=== PATIENT | male | born 1970 | race African-American/Black ===

== ENCOUNTER 2022-08-10 13:52 | Emergency (ER) | payer SELFPAY ==
[2022-08-10 16:27] LABS: HEMOGLOBIN. 14.4 g/dL (14.0-18.0); RED CELL DISTRIBUTION WIDTH 14.8 % (11.6-14.6)
[2022-08-10 16:40] LABS: BASOPHILS % 0.4 % (0.0-2.0); EOSINOPHILS % 0.7 % (0.0-5.0); HEMATOCRIT. 41.2 % (42.0-52.0); LYMPHOCYTES % 12.8 % (20.0-50.0); MEAN CORPUSCULAR HEMOGLOBIN 34.3 pg (28.0-32.0); MEAN CORPUSCULAR VOLUME 98.1 fL (80.0-94.0); MEAN PLATELET VOLUME 7.8 fl (7.4-10.4); MONOCYTES % 7.8 % (2.0-8.0); NEUTROPHILS % 78.3 % (40.0-76.0); PLATELET 134 x1000/uL (130-400)
[2022-08-10 16:48] LABS: CHLORIDE 111 mEq/L (98-107)
[2022-08-10 19:00] VITALS: BP 128/71
== END 2022-08-10 21:58 | disposition left against medical advice (07) ==
LOC: ER 14:07
DX: Z53.21 Procedure and treatment not carried out due to patient leaving prior to being seen by health care provider (principal)
CPT/HCPCS: 36415; 80053; 85025